=== PATIENT | male | born 1940 | race Native Hawaiian/Other Pacific Islander ===

== ENCOUNTER 2017-10-25 16:19 | Inpatient (IN) | payer OTHER ==
[2017-10-25] VITALS (10 sets, daily range): BP systolic 106–145; BP diastolic 69–88; TEMP 93–94.6; Ht 172.7 cm; Wt 85.5 kg
[~2017-10-25] VITALS: Ht 172.7 cm; Wt 85.5 kg
[~2017-10-25 16:19] MED LIST: ALBUTERO1 IN; BISACODYL PO; BISACODYL5 M1 PO; CIPRO500 MG PO; CITA20TA2 PO; DAILY-VITE1 TAB PO; DIVA500T2 PO; DOCU100C10 PO; DONE5TAB PO; FINA5TAB2 PO; HALO5INJ3 IM; LIPITOR20 MG PO; LISI10TA11 PO; LORA1TAB17 PO; MAGNSUS68 PO; MEMA10TA2 PO; MULT VITAMI1 PO; NAMENDA10 MG PO; OMEPRAZOLE20 M1 PO; PROVERA10 MG PO; RISP0.5T2 PO; SENNA LAX8.6 MG PO; SOAP SUDS ENEMA RE; TAMS0.4C PO; VALPROIC ACD250 MG PO; VENL37.511 PO; VENLAFAXINE37.5 ER PO; VENLAFAXINE75 M2 PO; ZYPREXA ZYDI10 MG PO
[2017-10-26] VITALS (22 sets, daily range): BP systolic 92–163; BP diastolic 52–96; TEMP 96.3–957
[2017-10-26 06:35] LABS: POTASSIUM 3.8 mmol/L (3.6-5.2)
[2017-10-26 06:41] LABS: PLATELET COUNT 131 K/uL (142-355)
[2017-10-26] MEDS ORDERED: DIVA500T2 PO (18:14)
[2017-10-26] MEDS ORDERED: VENLAFAXINE75 M2 PO (18:15)
[2017-10-26] MEDS ORDERED: PANTPAK PO (18:18)
[2017-10-26] MEDS ORDERED: FIBER LAXATIV0.52 GM PO (18:21)
[2017-10-26] MEDS ORDERED: ELIQUIS5 MG PO (18:23)
[2017-10-26] MEDS ORDERED: LEXAPRO20 MG PO (18:26)
[2017-10-27] VITALS (20 sets, daily range): BP systolic 101–166; BP diastolic 46–90; TEMP 97.2–98.5
[2017-10-27 05:52] LABS: PLATELET COUNT 135 K/uL (142-355)
[2017-10-28] VITALS (7 sets, daily range): BP systolic 105–165; BP diastolic 81–103; TEMP 97.6–98.9
== END 2017-10-28 17:10 | DRG 922 ==
LOC: ICU 16:19
DX: T68.XXXA Hypothermia, initial encounter (principal); G93.49 Other encephalopathy; E46 Unspecified protein-calorie malnutrition; I10 Essential (primary) hypertension; E78.4 Other hyperlipidemia; R41.82 Altered mental status, unspecified; I95.89 Other hypotension; N40.0 Benign prostatic hyperplasia without lower urinary tract symptoms; I12.9 Hypertensive chronic kidney disease with stage 1 through stage 4 chronic kidney disease, or unspecified chronic kidney disease; N18.3 Chronic kidney disease, stage 3 (moderate); I48.91 Unspecified atrial fibrillation; R13.12 Dysphagia, oropharyngeal phase; D64.89 Other specified anemias; Z86.73 Personal history of transient ischemic attack (TIA), and cerebral infarction without residual deficits; G25.2 Other specified forms of tremor; G30.8 Other Alzheimer's disease; F02.80 Dementia in other diseases classified elsewhere, unspecified severity, without behavioral disturbance, psychotic disturbance, mood disturbance, and anxiety; F25.8 Other schizoaffective disorders
CPT/HCPCS: 36415; 36430; 51702; 80053; 81000; 82550; 82962; 83735; 84484; 85027; 87040; 87088; 93005; 93306; 94760

== ENCOUNTER 2018-02-08 12:01 | Outpatient (CLI) | payer OTHER ==
[~2018-02-08 12:01] MED LIST changes: +ELIQUIS5 MG PO; +FIBER LAXATIV0.52 GM PO; +LEXAPRO20 MG PO; +PANTPAK PO
[2018-02-08] MEDS ORDERED: MEDR2.5T19 PO (13:24)
[2018-02-08] MEDS ORDERED: VENL37.511 PO (13:26)
[2018-02-08] MEDS ORDERED: NAMZARIC 28-101 CAP PO (13:28)
[2018-02-08] MEDS ORDERED: RISP1TAB PO (13:28)
== END 2018-02-08 12:43 | disposition short-term general hospital (02) ==
LOC: AMB 12:01
DX: F99 Mental disorder, not otherwise specified (principal)
CPT/HCPCS: A0425; A0429